=== PATIENT | male | born 1960 | race Caucasian/White ===

== ENCOUNTER 2017-10-03 16:48 | Inpatient (IN) | payer OTHER ==
[~2017-10-03] VITALS: Ht 167.6 cm; Wt 84.0 kg
[2017-10-03 17:02] VITALS: BP 151/84; PULSE 80; RESP 16; TEMP 98.3; O2SAT 96
--- NOTE | 2017-10-03 17:44 | PD ---
HPI Chief Complaint: Fall Time Seen by Provider: 16:58 Travel History International Travel<30 days: No Contact w/Intl Traveler<30days: No History of Present Illness HPI The patient is a 57-year-old male who presents to the emergency department as a transfer from [facility], as a trauma transfer. The patient was on a ladder earlier today when he lost his balance and fell from the ladder, 10 feet , to the ground. The patient landed on a grassy surface, on his heels with she was in place. He complains of low back pain. The patient had a CT of his abdomen and pelvis which revealed an acute fracture superior endplate of L1 that extends into the left lamina with retropulsion the superior endplate associated moderate central spinal stenosis. The patient denies any loss of consciousness during the fall and denies striking his head or neck. He denies any chest pain, shortness of breath, urinary incontinence, or weakness of the upper or lower extremities. The patient denies any chronic medical problems. PFSH Past Medical History Medical History: Denies Significant Hx Tetanus Vaccination: > 5 Years Influenza Vaccination: No Past Surgical History Surgical History: No Previous Surgery Social History Alcohol Use: Yes (wine occu) Tobacco Use: No (quit 30 yrs ago) Substance Use: No Allergies-Medications (Allergen,Severity, Reaction): Coded Allergies: No Known Allergies (Unverified , 10/03/17) Review of Systems Except as stated in HPI: all other systems reviewed are Neg HENT: No: Headaches, Neck Pain Cardiovascular: No: Chest Pain or Discomfort Respiratory: No: Shortness of Breath Gastrointestinal: No: Nausea, Vomiting, Abdominal Pain Musculoskeletal: Positive: Pain Neurologic: No: Dizziness, Focal Abnormalities, Paresthesia, Incontinence, Sensory Disturbance Physical Exam Narrative GENERAL: Awake, alert, pleasant 37-year-old male who appears his stated age and is in no acute respiratory distress. SKIN: Focused skin assessment warm/dry. HEAD: Atraumatic. Normocephalic. EYES: Pupils equal and round. 4 mm bilateral and reactive. EOMs are intact. ENT: No nasal bleeding or discharge. Mucous membranes pink and moist. NECK: Trachea midline. No JVD. No tenderness of the cervical vertebrae. CARDIOVASCULAR: Regular rate and rhythm. No murmur appreciated. RESPIRATORY: No accessory muscle use. Clear to auscultation. Breath sounds equal bilaterally. GASTROINTESTINAL: Abdomen soft, non-tender, nondistended. No rebound tenderness. Back: Tenderness of the mid lumbar region. No obvious deformity. MUSCULOSKELETAL: No obvious deformities. No clubbing. No cyanosis. No edema. Moves all 4 extremity. NEUROLOGICAL: Awake and alert. No obvious cranial nerve deficits. Motor grossly within normal limits. Normal speech. Sensation is intact all 4 extremities. Nonfocal. Oriented 5. PSYCHIATRIC: Appropriate mood and affect; insight and judgment normal. Data Data Last Documented VS Vital Signs Date Time Temp Pulse Resp B/P (MAP) Pulse Ox O2 Delivery O2 Flow Rate FiO2 10/03/17 17:02 98.3 80 16 151/84 (106) [address] Thor Spine W/O Contrast (10/03/17 ) Ct Thorax/ Chest Wo Iv Contras (10/03/17 ) Ct Lumb Spine W/O Contrast (10/03/17 ) Admit Order (Ed Use Only) (10/03/17 17:49) MDM Medical Decision Making Medical Screen Exam Complete: Yes Emergency Medical Condition: Yes Medical Record Reviewed: Yes Interpretation(s) Chest x-ray from [facility] reveals no active pulmonary disease. No focal infiltrate. CT abdomen and pelvis with contrast from [facility] reveals acute compression fracture superior endplate of L1. Fracture extends into the left lamina. Retropulsion of the superior endplate with associated moderate central spinal stenosis. Prostatomegaly with extrinsic pressure in the floor of the bladder. CBC revealed white count 6.5, hemoglobin 14.3, hematocrit 42.4, platelet count 254 PT 13.1, INR 1.0, PTT 23.5 Sodium 139, potassium 4.8, chloride 103, CO2 24, anion gap 12, glucose 142, BUN 17, creatinine 0.72, calcium 9.0, GFR 102.8 Last Impressions Thoracic Spine CT 10/03/17 0000 Signed Impressions: Service Date/Time: Tuesday, October 03, 2017 18:44 - CONCLUSION: 1. No acute fracture is identified within the thoracic spine. Burst fracture L1. See lumbar spine CT report. Usman Campo MD Lumbar Spine CT 10/03/17 0000 Signed Impressions: Service Date/Time: Tuesday, October 03, 2017 18:39 - CONCLUSION: 1. Burst fracture of L1 with retropulsion compromising about 30%% of the AP canal diameter and mild to moderate depression of the superior endplate. No other lumbar spine fractures identified. Usman Campo MD Chest CT 10/03/17 0000 Signed Impressions: Service Date/Time: Tuesday, October 03, 2017 18:44 - CONCLUSION: 1. Negative for acute traumatic injury in the in the thorax. L1 burst fracture. See lumbar spine CT. Usman Campo MD Differential Diagnosis Differential diagnosis includes L1 compression fracture, spinal cord injury, mechanical fall, axial injury. Narrative Course IV was established, and the patient was placed on cardiac telemetry monitoring continuous pulse ox imaging monitoring. I discussed the patient with the on- call trauma surgeon, Dr. Rodriguez, who agrees with admission but request CT of the thorax, therefore, thoracic and lumbar spine CTs were ordered with CT of the thorax. The patient has no pain of the lower extremities over the heels, I doubt calcaneal fractures. The patient will be admitted to the trauma service. Physician Communication Physician Communication The patient will be admitted to the trauma service. Diagnosis Primary Impression: Fracture of lumbar spine Qualified Codes: S32.019A - Unspecified fracture of first lumbar vertebra, initial encounter for closed fracture Admitting Information Admitting Physician Requests: Admit Condition: Stable Kev Jose MD Oct 03, 2017 17:44
--- NOTE | 2017-10-03 19:27 | RADRPT ---
EXAM DATE/TIME: 10/03/2017 18:39 [facility] COMPARISON: No previous studies available for comparison. INDICATIONS : TRauma, patient fell off ladder, injuring back. RADIATION DOSE: 17.53 CTDIvol (mGy) MEDICAL HISTORY : None SURGICAL HISTORY : None. ENCOUNTER: Initial ACUITY: 1 day PAIN SCALE: 6/10 LOCATION: back TECHNIQUE: Volumetric scanning of the lumbar spine was performed. Multiplanar reconstructions in the sagittal, coronal and oblique axial planes were performed. Using automated exposure control and adjustment of the mA and/or kV according to patient size, radiation dose was kept as low as reasonably achievable t o obtain optimal diagnostic quality images. DICOM format image data is available electronically for review and comparison. FINDINGS: There is a burst fracture of L1 vertebral body with mild retropulsion compromising about 30% of the A P canal diameter and mild to moderate depression of the superior endplate. No other lumbar spine frac tures. No spondylolisthesis. CONCLUSION: 1. Burst fracture of L1 with retropulsion compromising about 30% of the AP canal diameter and mild to moderate depression of the superior endplate. No other lumbar spine fractures identified. Usman Campo MD on October 03, 2017 at 19:22 Board Certified Radiologist. This report was verified electronically.
--- NOTE | 2017-10-03 19:29 | RADRPT ---
EXAM DATE/TIME: 10/03/2017 18:44 [facility] COMPARISON: No previous studies available for comparison. INDICATIONS : Trauma, patient fell off ladder, injuring back. RADIATION DOSE: 5.81 CTDIvol (mGy) MEDICAL HISTORY : None SURGICAL HISTORY : None. ENCOUNTER: Initial ACUITY: 1 day PAIN SCALE: 6/10 LOCATION: chest TECHNIQUE: Volumetric scanning of the chest was performed. Using automated exposure control and adjustment of t he mA and/or kV according to patient size, radiation dose was kept as low as reasonably achievable to obtain optimal diagnostic quality images. DICOM format image data is available electronically for r eview and comparison. Follow-up recommendations for detected pulmonary nodules are based at a minimum on nodule size and pa tient risk factors according to Fleischner Society Guidelines. FINDINGS: There is mild dependent atelectasis in the lungs. No pleural or pericardial effusion. No pneumothorax . No acute bony abnormalities identified within the thorax. There is an L1 burst fracture. See lumbar spine CT report. CONCLUSION: 1. Negative for acute traumatic injury in the in the thorax. L1 burst fracture. See lumbar spine CT. Usman Campo MD on October 03, 2017 at 19:25 Board Certified Radiologist. This report was verified electronically.
[2017-10-03] MEDS ORDERED: CHLORHEXIDINE GLUCONATE 2 % 1 PACK (2 CLOTHS) TOP PRN (19:45)
[2017-10-03] MEDS ORDERED: MORPHINE SULFATE 2 MG/ML INJ IV PUSH PRN (19:45)
[2017-10-03] MEDS ORDERED: MAGNESIUM HYDROXIDE SUSP 30 ML CUP PO PRN (19:45)
[2017-10-03] MEDS ORDERED: BISACODYL 10 MG SUPP RECTAL PRN (19:45)
[2017-10-03] MEDS ORDERED: MISCELLANEOUS NURSING INFORMATION XX SCH (19:45)
[2017-10-03] MEDS ORDERED: LACTULOSE SYRUP 20 GM/30 ML CUP PO PRN (19:45)
[2017-10-03] MEDS ORDERED: ONDANSETRON HCL 4 MG/2 ML VIAL IV PUSH PRN (19:45)
[2017-10-03] MEDS ORDERED: SENNOSIDES 8.6 MG TAB PO PRN (19:45)
--- NOTE | 2017-10-03 19:48 | RADRPT ---
EXAM DATE/TIME: 10/03/2017 18:44 [facility] COMPARISON: No previous studies available for comparison. INDICATIONS : TRauma, patient fell off ladder, injuring back. RADIATION DOSE: CTDIvol (mGy) ; Reconstructed from previous dataset, no dose MEDICAL HISTORY : None SURGICAL HISTORY : None. ENCOUNTER: Initial ACUITY: 1 day PAIN SCALE: 6/10 LOCATION: back TECHNIQUE: Volumetric scanning of the thoracic spine was performed. Multiplanar reconstructions in the sagittal , coronal and oblique axial planes were performed. Using automated exposure control and adjustment o f the mA and/or kV according to patient size, radiation dose was kept as low as reasonably achievable to obtain optimal diagnostic quality images. DICOM format image data is available electronically f or review and comparison. FINDINGS: The vertebral bodies of the thoracic spine are in normal alignment without evidence of subluxation. Vertebral body height is maintained. No fractures are seen. T1-T2: Normal. T2-T3: The thecal sac has a normal diameter. No evidence of disc bulge or protrusion. T3-T4: The thecal sac has a normal diameter. No evidence of disc bulge or protrusion. T4-T5: The thecal sac has a normal diameter. No evidence of disc bulge or protrusion. T5-T6: The thecal sac has a normal diameter. No evidence of disc bulge or protrusion. T6-T7: The thecal sac has a normal diameter. No evidence of disc bulge or protrusion. T7-T8: The thecal sac has a normal diameter. No evidence of disc bulge or protrusion. T8-T9: The thecal sac has a normal diameter. No evidence of disc bulge or protrusion. T9-T10: The thecal sac has a normal diameter. No evidence of disc bulge or protrusion. T10-T11: The thecal sac has a normal diameter. No evidence of disc bulge or protrusion. T11-T12: The thecal sac has a normal diameter. No evidence of disc bulge or protrusion. T12-L1: The thecal sac has a normal diameter. No evidence of disc bulge or protrusion. L1 burst fracture. CONCLUSION: 1. No acute fracture is identified within the thoracic spine. Burst fracture L1. See lumbar spine CT report. Usman Campo MD on October 03, 2017 at 19:44 Board Certified Radiologist. This report was verified electronically.
--- NOTE | 2017-10-03 19:57 | HHI.HP ---
History of Present Illness Primary Care Physician No Primary Care Physician Admission Diagnosis trauma transfer, L1 compression fracture Diagnoses: History of Present Illness 57 y.o male fell today 10 feet ,transfer from outside institution-has L1 burst fracture neuro intact,HD normal,moving all 4 extremities. Review of Systems Constitutional: DENIES: Diaphoretic episodes, Fatigue, Fever, Weight gain, Weight loss, Chills, Dizziness, Change in appetite, Night Sweats Endocrine: DENIES: Heat/cold intolerance, Polydipsia, Polyuria, Polyphagia Eyes: DENIES: Blurred vision, Diplopia, Eye inflammation, Eye pain, Vision loss , Photosensitivity, Double Vision Ears, nose, mouth, throat: DENIES: Tinnitus, Hearing loss, Vertigo, Nasal discharge, Oral lesions, Throat pain, Hoarseness, Ear Pain, Running Nose, Epistaxis, Sinus Pain, Toothache, Odynophagia Respiratory: DENIES: Apneas, Cough, Snoring, Wheezing, Hemoptysis, Sputum production, Shortness of breath Cardiovascular: DENIES: Chest pain, Palpitations, Syncope, Dyspnea on Exertion , PND, Lower Extremity Edema, Orthopnea, Claudication Gastrointestinal: DENIES: Abdominal pain, Black stools, Bloody stools, Constipation, Diarrhea, Nausea, Vomiting, Difficulty Swallowing, Anorexia Genitourinary: DENIES: Sexual dysfunction, Urinary frequency, Urinary incontinence, Urgency, Hematuria, Dysuria, Nocturia, Penile Discharge, Testicular Pain, Testicular Swelling Musculoskeletal: DENIES: Joint pain, Muscle aches, Stiffness, Joint Swelling, Back pain, Neck pain Integumentary: DENIES: Abnormal pigmentation, Nail changes, Pruritus, Rash Hematologic/lymphatic: DENIES: Bruising, Lymphadenopathy Immunologic/allergic: DENIES: Eczema, Urticaria Neurologic: DENIES: Abnormal gait, Headache, Localized weakness, Paresthesias, Seizures, Speech Problems, Tremor, Poor Balance Psychiatric: COMPLAINS OF: Anxiety, Confusion, Mood changes, Depression, Hallucinations, Agitation, Suicidal Ideation, Homicidal Ideation, Delusions Past Family Social History Allergies: Coded Allergies: No Known Allergies (Unverified , 10/03/17) Past Medical History HTN Past Surgical History none Reported Medications lisinopril Family History none Social History etoh occ Physical Exam Vital Signs Vital Signs Date Time Temp Pulse Resp B/P (MAP) Pulse Ox O2 Delivery O2 Flow Rate FiO2 10/03/17 17:02 98.3 80 16 151/84 (106) 96 Physical Exam GENERAL: This is a well-nourished, well-developed patient, in no apparent distress. SKIN: No rashes, ecchymoses or lesions. Cool and dry. HEAD: Atraumatic. Normocephalic. No temporal or scalp tenderness. EYES: Pupils equal round and reactive. Extraocular motions intact. ENT: Nose without bleeding, purulent drainage or septal hematoma. . Airway patent. NECK: Trachea midline. No JVD or lymphadenopathy. Supple, nontender CARDIOVASCULAR: Regular rate and rhythm without murmurs, gallops, or rubs. RESPIRATORY: Clear to auscultation. Breath sounds equal bilaterally. No wheezes , rales, or rhonchi. GASTROINTESTINAL: Abdomen soft, non-tender, nondistended.. No guarding. MUSCULOSKELETAL: Extremities without clubbing, cyanosis, or edema. No joint tenderness, effusion, or edema noted. No calf tenderness. back tenderness NEUROLOGICAL: Awake and alert. Cranial nerves II through XII intact. Motor and sensory grossly within normal limits. Five out of 5 muscle strength in all muscle groups. Normal speech. Imaging Last 24 hours Impressions Lumbar Spine CT 10/03/17 0000 Signed Impressions: Service Date/Time: Tuesday, October 03, 2017 18:39 - CONCLUSION: 1. Burst fracture of L1 with retropulsion compromising about 30%% of the AP canal diameter and mild to moderate depression of the superior endplate. No other lumbar spine fractures identified. Usman Campo MD Chest CT 10/03/17 0000 Signed Impressions: Service Date/Time: Tuesday, October 03, 2017 18:44 - CONCLUSION: 1. Negative for acute traumatic injury in the in the thorax. L1 burst fracture. See lumbar spine CT. MD Jam Willoughbyi VTE Risk Assessment Caprini VTE Risk Assessment: Mod/High Risk (score >= 2) VTE Pharm Contraindication: High risk for bleeding Caprini Risk Assessment Model Point Value = 1 Point Value = 2 Point Value = 3 Point Value = 5 Age 41-60 Minor surgery BMI > 25 kg/m2 Swollen legs Varicose veins or History of unexplained or recurrent spontaneous Oral contraceptives or hormone replacement Sepsis (< 1 month) Serious lung disease, including pneumonia (< 1 month) Abnormal pulmonary function Acute myocardial infarction Congestive heart failure (< 1 month) History of inflammatory bowel disease Medical patient at bed rest Age 61-74 Arthroscopic surgery Major open surgery (> 45 min) Laparoscopic surgery (> 45 min) Malignancy Confined to bed (> 72 hours) Immobilizing plaster cast Central venous access Age >= 75 History of VTE Family history of VTE Factor V Leiden Prothrombin [id number] Lupus anticoagulant Anticardiolipin antibodies Elevated serum homocysteine Heparin-induced thrombocytopenia Other congenital or acquired thrombophilia Stroke (< 1 month) Elective arthroplasty Hip, pelvis, or leg fracture Acute spinal cord injury (< 1 month) Prophylaxis Regimen Total Risk Factor Score Risk Level Prophylaxis Regimen 0-1 Low Early ambulation 2 Moderate Order ONE of the following: *Sequential Compression Device (SCD) *Heparin 5000 units SQ BID 3-4 Higher Order ONE of the following medications: *Heparin 5000 units SQ TID *Enoxaparin/Lovenox 40 mg SQ daily (WT < 150 kg, CrCl > 30 mL/min) *Enoxaparin/Lovenox 30 mg SQ daily (WT < 150 kg, CrCl > 10-29 mL/min) *Enoxaparin/Lovenox 30 mg SQ BID (WT < 150 kg, CrCl > 30 mL/min) AND/OR *Sequential Compression Device (SCD) 5 or more Highest Order ONE of the following medications: *Heparin 5000 units SQ TID (Preferred with Epidurals) *Enoxaparin/Lovenox 40 mg SQ daily (WT < 150 kg, CrCl > 30 mL/min) *Enoxaparin/Lovenox 30 mg SQ daily (WT < 150 kg, CrCl > 10-29 mL/min) *Enoxaparin/Lovenox 30 mg SQ BID (WT < 150 kg, CrCl > 30 mL/min) AND *Sequential Compression Device (SCD) Assessment and Plan Assessment and Plan L1 burst fx neuro intact admit to ICU neuro checks NS consult pain control Ramila Stallworth MD Oct 03, 2017 19:57
[2017-10-03 20:00] VITALS: BP 138/70; PULSE 80; RESP 22; TEMP 98.3; O2SAT 96
[2017-10-03] MEDS: ACETAMINOPHEN 1000 MG/100 ML 100 ML IV SCH (20:52)
[2017-10-03] MEDS: METHOCARBAMOL 500 MG TAB PO SCH (20:52)
[2017-10-03] MEDS: DOCUSATE SODIUM 50 MG/SENNA 8.6 MG TAB PO SCH ×2 (20:52→21:00)
[2017-10-03] MEDS: SODIUM CHLOR 0.9% 1000 ML INJ 1,000 ML IV SCH (20:53)
[2017-10-03 21:10] VITALS: PULSE 80
[2017-10-03 22:00] VITALS: PULSE 71
--- NOTE | 2017-10-03 22:38 | PD.CONS ---
History of Present Illness Service Neurosurgery Consult Requested By Trauma service- Reason for Consult L1 fracture Primary Care Physician No Primary Care Physician Diagnoses: History of Present Illness The patient is a 57-year-old male who was transferred from [facility] as a trauma patient after he fell off of a ladder earlier today, he fell approximately 10 feet onto grass with immediate onset of severe low back pain. Initial CT scanning revealed an L1 fracture. He was transferred to [facility] emergency room for further evaluation. The patient has had no sensorimotor symptoms or deficits in the upper or lower extremities. Review of Systems Constitutional: DENIES: Dizziness Eyes: DENIES: Blurred vision Ears, nose, mouth, throat: DENIES: Vertigo Respiratory: DENIES: Hemoptysis, Shortness of breath Cardiovascular: DENIES: Chest pain Gastrointestinal: DENIES: Abdominal pain, Nausea Genitourinary: DENIES: Urinary incontinence Musculoskeletal: COMPLAINS OF: Muscle aches, Stiffness, Back pain, DENIES: Neck pain Hematologic/lymphatic: DENIES: Bruising Neurologic: DENIES: Headache Psychiatric: DENIES: Confusion Past Family Social History Allergies: Coded Allergies: No Known Allergies (Unverified , 10/03/17) Past Medical History No history of cardiac, pulmonary, gastrointestinal disease, diabetes Past Surgical History No previous surgical procedures Reported Medications No prescription medications Social History Drinks alcohol occasionally. Has not smoked cigarettes for approximately 30 years. Physical Exam Vital Signs Vital Signs Date Time Temp Pulse Resp B/P (MAP) Pulse Ox O2 Delivery O2 Flow Rate FiO2 10/03/17 22:00 71 10/03/17 21:10 80 10/03/17 20:00 98.3 80 22 138/70 (92) 96 10/03/17 17:02 98.3 80 16 151/84 (106) 96 Physical Exam GENERAL: This is a well-nourished, well-developed patient, no apparent distress. SKIN: No abrasions, contusion, rash noted. Skin warm and dry. HEAD: Atraumatic. Normocephalic. No temporal or scalp tenderness. EYES: Sclerae are clear and nonicteric ENT: No facial edema or ecchymosis. No periorbital edema. No CSF otorrhea or rhinorrhea. No palpable facial fracture or deformity. NECK: Trachea midline. No cervical spine tenderness. CARDIOVASCULAR: Regular rate and rhythm without murmurs, gallops, or rubs. RESPIRATORY: Clear nonlabored GASTROINTESTINAL: Abdomen soft, non-tender, nondistended. No hepato-splenomegaly , or palpable masses. No guarding. MUSCULOSKELETAL: Extremities without cyanosis, or edema. No joint tenderness, or edema noted. No calf tenderness. Dorsalis pedis pulses 2+ bilateral Positive tenderness at the thoracolumbar midline paraspinous musculature. NEUROLOGICAL: Awake and alert Oriented X 3 Speech is clear Conversant and appropriate Follow simple commands well Answers questions appropriately Reasonable judgment and insight Recent and remote memory are intact No evidence of anxiety or depression Pupils are equal and reactive to accommodation. Extra-ocular movements, visual griffiths to confrontation, facial sensorimotor, tongue, palate, sternocleidomastoid testing, hearing to finger rub testing, and bilateral shoulder shrug are all intact. Sensation is intact to light touch in all extremities Strength normal major flexion and extension groups all extremities Honey's absent bilaterally No ankle clonus Plantar responses absent bilateral Fine motor movements intact upper extremities Imaging 10/03/17 CT scan of the thoracic and lumbar spine images reviewed by the undersigned. The study reveals a superior L1 vertebral burst-type fracture with approximately 30% loss of central height. There is approximately 6 mm retropulsion of the superior L1 vertebral body into the canal with 7 mm residual AP thecal sack dimension. The fracture extends slightly into the L1 lamina, however there is no other obvious posterior column disruption including no separation of the spinous processes or subluxation of the vertebral bodies or facet. No significant kyphosis. Thoracic Spine CT 10/03/17 0000 Signed Impressions: Service Date/Time: Tuesday, October 03, 2017 18:44 - CONCLUSION: 1. No acute fracture is identified within the thoracic spine. Burst fracture L1. See lumbar spine CT report. Usman Campo MD Lumbar Spine CT 10/03/17 0000 Signed Impressions: Service Date/Time: Tuesday, October 03, 2017 18:39 - CONCLUSION: 1. Burst fracture of L1 with retropulsion compromising about 30%% of the AP canal diameter and mild to moderate depression of the superior endplate. No other lumbar spine fractures identified. Usman Campo MD Chest CT 10/03/17 0000 Signed Impressions: Service Date/Time: Tuesday, October 03, 2017 18:44 - CONCLUSION: 1. Negative for acute traumatic injury in the in the thorax. L1 burst fracture. See lumbar spine CT. Usman Campo MD Assessment and Plan Assessment and Plan Impression: 1. Superior L1 burst fracture with approximately 30% loss of vertebral body height, just less than 50% canal compromise, minimal posterior column involvement with laminar fracture but no evidence of ligamentous injury or subluxation, and no focal neurologic deficit on examination. TLICS score = 2. Recommendations: Findings were discussed with the patient. Recommend initial conservative treatment. Mobilize out of bed with TLSO brace and monitor pain level and neurologic function as well as follow-up radiologic imaging to assess for any progression of the fracture severity. Pain medications as needed to control acute pain. Physical therapy Risk of progressive fracture or neurologic injury with conservative treatment fully discussed. I have answered all his questions. He appears to understand and agree with the above plan. Edgardo Lux MD Oct 03, 2017 22:38
[2017-10-04] VITALS (12 sets, daily range): BP systolic 122–144; BP diastolic 65–88; PULSE 64–78; RESP 14–20; TEMP 98–98.7; O2SAT 95–97
[2017-10-04] MEDS: MORPHINE SULFATE 4 MG/ML INJ IV PUSH PRN ×3 (00:07→07:47)
[2017-10-04] MEDS: ACETAMINOPHEN 1000 MG/100 ML 100 ML IV SCH ×3 (02:36→15:43)
[2017-10-04] MEDS ORDERED: CHLORHEXIDINE GLUCONATE 2 % 1 PACK (2 CLOTHS) TOP SCH (04:00)
[2017-10-04 05:33] LABS: AUTOMATED NEUTROPHIL # 4.7 TH/MM3 (1.8-7.7); BASOPHIL % 0.3 % (0.0-2.0); EOSINOPHIL % 0.6 % (0.0-4.0); HEMATOCRIT 38.2 % (39.0-51.0); HEMO FLAGS DIFF FINAL; LYMPH % 19.5 % (9.0-44.0); LYMPHOCYTE # 1.3 TH/MM3 (1.0-4.8); MEAN CELL VOLUME 96.6 FL (80.0-100.0); MEAN CORPUSCULAR HEMOGLOBIN 32.9 PG (27.0-34.0); MEAN CORPUSCULAR HGB CONC 34.1 % (32.0-36.0); MONO % 9.5 % (0.0-8.0); NEUT % 70.1 % (16.0-70.0); PLATELET COUNT 205 TH/MM3 (150-450); RED BLOOD COUNT 3.95 MIL/MM3 (4.50-5.90); RED CELL DISTRIBUTION WIDTH 13.3 % (11.6-17.2); WHITE BLOOD COUNT 6.7 TH/MM3 (4.0-11.0)
[2017-10-04 05:54] LABS: BICARBONATE 26.3 MEQ/L (21.0-32.0); POTASSIUM 3.7 MEQ/L (3.5-5.1)
[2017-10-04] MEDS: METHOCARBAMOL 500 MG TAB PO SCH ×3 (05:58→20:59)
[2017-10-04] MEDS: SODIUM CHLOR 0.9% 1000 ML INJ 1,000 ML IV SCH ×2 (06:45→17:00)
[2017-10-04] MEDS: DOCUSATE SODIUM 50 MG/SENNA 8.6 MG TAB PO SCH ×2 (09:40→20:59)
--- NOTE | 2017-10-04 12:36 | HHI.NSPN ---
(Ariel Todd) History Chief Complaint: Back pain (Ariel Todd) Interval History 10/03: The patient is a 57-year-old male who was transferred from [facility] as a trauma patient after he fell off of a ladder earlier today, he fell approximately 10 feet onto grass with immediate onset of severe low back pain. Initial CT scanning revealed an L1 fracture. He was transferred to [facility] emergency room for further evaluation. The patient has had no sensorimotor symptoms or deficits in the upper or lower extremities. 10/04: The patient states that he does have low back pain but otherwise is doing good. He denies any pain, numbness, tingling or weakness to the lower extremities. He does say he hasn't been out of bed yet. There is a TLSO brace in the room. (Ariel Todd) System Review Comments MUSCULOSKELETAL: Low back pain. (Ariel Todd) Exam Results 10/02/17 10/02/17 10/03/17 10/03/17 10/04/17 10/04/17 06:00 18:00 06:00 18:00 06:00 18:00 Intake Total 1027 ml Output Total 900 ml Balance 127 ml Intake IV Total 1027 ml Output Urine Total 900 ml Vital Signs Date Time Temp Pulse Resp B/P (MAP) Pulse Ox O2 Delivery O2 Flow Rate FiO2 10/04/17 10:00 65 10/04/17 08:00 98.1 77 20 144/88 (106) 96 10/04/17 08:00 67 10/04/17 07:00 97 10/04/17 06:00 65 10/04/17 04:00 98.7 64 15 122/65 (84) 95 10/04/17 04:00 64 10/04/17 02:00 66 10/04/17 00:00 98.0 77 14 125/67 (86) 96 10/04/17 00:00 70 10/03/17 22:00 71 10/03/17 21:10 80 10/03/17 20:00 98.3 80 22 138/70 (92) 96 10/03/17 17:02 98.3 80 16 151/84 (106) 96 (Ariel Todd) Physical Examination GENERAL: Awake & alert in bed visiting with a friend, affect appears normal, in no apparent distress. MUSCULOSKELETAL: PATRICK w/o difficulty, no evident clubbing or deformity. TTP of thoracolumbar spine at T12-L2 region. NEUROLOGICAL: AAOx3. Speech clear & appropriate. Follows simple commands w/o difficulty. Sensation intact to the light touch to the lower extremities. Motor strength is 5/5 to all major flexion & extension muscle groups of the lower extremities. (Ariel Todd) Lab, Micro, Other Results Recent Impressions Thoracic Spine CT 10/03/17 0000 Signed Impressions: Service Date/Time: Tuesday, October 03, 2017 18:44 - CONCLUSION: 1. No acute fracture is identified within the thoracic spine. Burst fracture L1. See lumbar spine CT report. Usman Campo MD Lumbar Spine CT 10/03/17 0000 Signed Impressions: Service Date/Time: Tuesday, October 03, 2017 18:39 - CONCLUSION: 1. Burst fracture of L1 with retropulsion compromising about 30%% of the AP canal diameter and mild to moderate depression of the superior endplate. No other lumbar spine fractures identified. Usman Campo MD Chest CT 10/03/17 0000 Signed Impressions: Service Date/Time: Tuesday, October 03, 2017 18:44 - CONCLUSION: 1. Negative for acute traumatic injury in the in the thorax. L1 burst fracture. See lumbar spine CT. Usman Campo MD Laboratory Tests Test 10/03/17 20:48 10/04/17 04:44 Nasal Screen MRSA (PCR) MRSA NOT DETECTED White Blood Count 6.7 TH/MM3 Red Blood Count 3.95 MIL/MM3 Hemoglobin 13.0 GM/DL Hematocrit 38.2 % Mean Corpuscular Volume 96.6 FL Mean Corpuscular Hemoglobin 32.9 PG Mean Corpuscular Hemoglobin Concent 34.1 % Red Cell Distribution Width 13.3 % Platelet Count 205 TH/MM3 Mean Platelet Volume 9.1 FL Neutrophils (%) (Auto) 70.1 % Lymphocytes (%) (Auto) 19.5 % Monocytes (%) (Auto) 9.5 % Eosinophils (%) (Auto) 0.6 % Basophils (%) (Auto) 0.3 % Neutrophils # (Auto) 4.7 TH/MM3 Lymphocytes # (Auto) 1.3 TH/MM3 Monocytes # (Auto) 0.6 TH/MM3 Eosinophils # (Auto) 0.0 TH/MM3 Basophils # (Auto) 0.0 TH/MM3 CBC Comment DIFF FINAL Differential Comment Blood Urea Nitrogen 12 MG/DL Creatinine 0.67 MG/DL Random Glucose 111 MG/DL Calcium Level 8.1 MG/DL Sodium Level 139 MEQ/L Potassium Level 3.7 MEQ/L Chloride Level 106 MEQ/L Carbon Dioxide Level 26.3 MEQ/L Anion Gap 7 MEQ/L Estimat Glomerular Filtration Rate 122 ML/MIN (Ariel Todd) Medical Decision Making Impression and Plan Impression: 1. Superior L1 burst fracture with approximately 30% loss of vertebral body height, just less than 50% canal compromise, minimal posterior column involvement with laminar fracture but no evidence of ligamentous injury or subluxation, and no focal neurologic deficit on examination. TLICS score = 2. Patient doing well in bed, pain controlled, neurologically intact. Plan: Primary management per Trauma & Computer Clerk. Neuro checks. TLSO brace when OOB. Mobilise patient w/assistance. Will obtain follow up imaging to assess for any progression of the fracture severity once mobilising. Pain medications as needed to control acute pain. PT eval & tx. (Ariel Todd) Attending Statement The exam, history, and the medical decision-making described in the above note were completed with the assistance of the mid-level provider. I reviewed and agree with the findings presented. I attest that I had a [id number] encounter with the patient on the same day, and personally performed and documented my assessment and findings in the medical record. The patient remains awake and alert on my examination today. He walked for a few feet with physical therapy today and sat up in a chair for a brief period of time. He states that he still has rather severe thoracolumbar pain and he is out of bed. However he has no complaint of weakness or numbness or pain in the lower extremities. No complain of bowel or bladder dysfunction. 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 I advised the patient that we will try to check a standing thoracolumbar spine x -ray later this week when he is able to tolerate standing for the x-ray. Continuing therapy with TLSO brace. Okay for Ayla. (Edgardo Lux MD) Ariel Todd Oct 04, 2017 12:36 Edgardo Lux MD Oct 04, 2017 19:54
--- NOTE | 2017-10-04 17:11 | HHI.CCPN ---
Subjective Brief History Patient fell off a ladder has L1 burst fracture scope be managed nonoperatively according to neurosurgery Patient will be placed in TLSO brace and transferred to the floor Neurologically he is fully intact and moves all 4 extremities Awake alert and oriented Bilateral good breath sounds Hemodynamically stable Abdomen slightly distended with active bowel sounds Extremities and normal with good proximal distal pulses neurovascular deficit Hematologically packed with stable hemoglobin Transferred to floor and discharge patient once ambulatory 24 Hour Review/Hospital Course 10/04/17 Patient fell off a ladder has L1 burst fracture scope be managed nonoperatively according to neurosurgery Patient will be placed in TLSO brace and transferred to the floor Neurologically he is fully intact and moves all 4 extremities Awake alert and oriented Bilateral good breath sounds Hemodynamically stable Abdomen slightly distended with active bowel sounds Extremities and normal with good proximal distal pulses neurovascular deficit Hematologically packed with stable hemoglobin Transferred to floor and discharge patient once ambulatory Objective Vital Signs Date Time Temp Pulse Resp B/P (MAP) Pulse Ox O2 Delivery O2 Flow Rate FiO2 10/04/17 15:00 98.2 78 18 134/82 (99) 97 Intake and Output 10/04/17 10/04/17 10/05/17 08:00 16:00 00:00 Intake Total 1027 ml 480 ml Output Total 900 ml 950 ml Balance 127 ml -470 ml Result Diagram: 10/04/17 0444 10/04/17 0444 Exam MEDICAL RECORD SPECIALIST Patient will be placed in TLSO brace and transferred to the floor Neurologically he is fully intact and moves all 4 extremities Awake alert and oriented Hemodynamic/Cardiac Bilateral good breath sounds Hemodynamically stable Pulmonary/Respiratory Abdomen slightly distended with active bowel sounds Extremities and normal with good proximal distal pulses neurovascular deficit Hematologically packed with stable hemoglobin Transferred to floor and discharge patient once ambulatory Assessment and Plan Attestation Critical care 35 minutes Anthony Arevalo MD Oct 04, 2017 17:11
--- NOTE | 2017-10-04 17:19 | PD.CONS ---
HPI Service Rehabilitation Medicine Consult Requested By [facility] trauma service Reason for Consult Comprehensive rehabilitation evaluation. Primary Care Physician No Primary Care Physician History of Present Illness Fadi Roberts is a 57-year-old male admitted [facility] 10/03/17 after fall from ladder. Lumbar spine CT showed burst fracture of L1 with retropulsion compromising about 30% of the AP canal diameter and mild to moderate depression of the superior endplate. This was treated nonsurgically with TLSO Review of Systems Eyes: DENIES: Diplopia Respiratory: DENIES: Shortness of breath Cardiovascular: DENIES: Chest pain Gastrointestinal: DENIES: Abdominal pain Genitourinary: DENIES: Urinary incontinence Musculoskeletal: COMPLAINS OF: Back pain Integumentary: DENIES: Rash Hematologic/lymphatic: DENIES: Bruising Neurologic: DENIES: Headache, Localized weakness, Paresthesias Psychiatric: DENIES: Confusion Past Family Social History Allergies: Coded Allergies: No Known Allergies (Unverified , 10/03/17) Past Medical History Hypertension Past Surgical History None Current Medications Current Medications Medications (Trade) Dose Ordered Sig/Micheal Route Start Time Stop Time Status Last Admin Sodium Chloride 1,000 ml @ 100 mls/hr Q10H IV 10/03/17 19:32 10/04/17 17:00 (Zofran Inj) 4 mg Q6H PRN IV PUSH 10/03/17 19:45 10/03/17 21:25 Miscellaneous Information 1 [id number] XX 10/03/17 19:45 (Chlorhexidine 2% Cloth) 3 pack Taper DAILY@04 TOP 10/04/17 04:00 09/30/18 03:59 (Chlorhexidine 2% Cloth) 3 pack UNSCH PRN TOP 10/03/17 19:45 (Milk Of Magnesia Liq) 30 ml Q12H PRN PO 10/03/17 19:45 (Senokot) 17.2 mg Q12H PRN PO 10/03/17 19:45 (Dulcolax Supp) 10 mg DAILY PRN RECTAL 10/03/17 19:45 (Lactulose Liq) 30 ml DAILY PRN PO 10/03/17 19:45 (Morphine Inj) 4 mg Q3H PRN IV PUSH 10/03/17 19:45 10/04/17 07:47 Acetaminophen 100 ml @ 400 mls/hr Q6H IV 10/03/17 21:00 12/13/17 20:59 10/04/17 15:43 (Robaxin) 500 mg Q8HR PO 10/03/17 22:00 10/04/17 13:32 (Johana-Colace) 2 tab BID PO 10/04/17 09:00 10/04/17 09:40 (Roxicodone) 5 mg Q4H PRN PO 10/04/17 06:30 (Roxicodone) 10 mg Q4H PRN PO 10/04/17 06:30 10/04/17 14:29 Family History Mother: . Sroke Social History Prior to admission patient lived in [place], [place]. He was independent with all mobility and ADLs. No tobacco history. Occasional alcohol use. Exam I&O / VS 10/04/17 10/04/17 10/05/17 15:00 23:00 07:00 Intake Total 480 ml Output Total 950 ml Balance -470 ml Intake Oral 480 ml Output Urine Total 950 ml Vital Signs Date Time Temp Pulse Resp B/P (MAP) Pulse Ox O2 Delivery O2 Flow Rate FiO2 10/04/17 15:00 98.2 78 18 134/82 (99) 97 10/04/17 13:00 70 10/04/17 10:00 65 10/04/17 08:00 98.1 77 20 144/88 (106) 96 10/04/17 08:00 67 10/04/17 07:00 97 10/04/17 06:00 65 10/04/17 04:00 98.7 64 15 122/65 (84) 95 10/04/17 04:00 64 10/04/17 02:00 66 10/04/17 00:00 98.0 77 14 125/67 (86) 96 10/04/17 00:00 70 10/03/17 22:00 71 10/03/17 21:10 80 10/03/17 20:00 98.3 80 22 138/70 (92) 96 General: No acute distress Respiratory: Lungs CTA, Non-labored respirations, BS equal Gastrointestinal: Positive Bowel Sounds, Non-Distended, Non-Tender Cardiovascular: Normal rate, Regular Rhythm Skin: Other (No rash noted) Musculoskeletal: Swelling (No distal lower extremity edema) Psychiatric: Cooperative, Appropriate mood & affect Orientation: oriented to Self, oriented to Place, oriented to Time, oriented to Situation Neurologic: Cranial Nerves (Intact 2 through 12), Facial Symmetry (Symmetric), Speech (Clear) Motor: Right Upper Extremity (5/5), Left Upper Extremity (5/5), Right Lower Extremity (Testing limited by pain but appears to be grossly 5/5), Left Lower Extremity (Testing limited by pain but appears to be grossly 5/5) Sensory Intact to light touch in both upper and lower extremities DTRs: Normal Clonus: Negative Assessment and Plan Diagnosis: (1) Burst fracture of lumbar vertebra ICD Codes: S32.001A - Stable burst fracture of unspecified lumbar vertebra, initial encounter for closed fracture Qualifiers: Encounter type: initial encounter Fracture type: closed Qualified Codes: S32.001A - Stable burst fracture of unspecified lumbar vertebra, initial encounter for closed fracture Assessment 1. Fall 10/03/17 with L1 burst fracture 2. Hypertension Plan 1. Physical therapy to begin to mobilize in TLSO 2. Occupational therapy addressing ADLs and patient is now maximal assistance for upper and lower body dressing 3. SCDs in place for DVT prophylaxis 4. Anticipate patient may need a short inpatient rehabilitation at discharge versus home health. Will follow in conjunction with case management 5. Will follow while hospitalized and at discharge Thank you for this consult Jeanette Varela MD Oct 04, 2017 17:19
[2017-10-05] MEDS: SODIUM CHLOR 0.9% 1000 ML INJ 1,000 ML IV SCH (03:22)
[2017-10-05 04:00] VITALS: BP 129/65; PULSE 70; RESP 18; TEMP 99.4; O2SAT 94
[2017-10-05 05:06] LABS: AUTOMATED NEUTROPHIL # 4.6 TH/MM3 (1.8-7.7); BASOPHIL % 0.5 % (0.0-2.0); EOSINOPHIL # 0.1 TH/MM3 (0-0.4); EOSINOPHIL % 1.1 % (0.0-4.0); HEMATOCRIT 38.8 % (39.0-51.0); HEMO FLAGS DIFF FINAL; LYMPH % 21.9 % (9.0-44.0); LYMPHOCYTE # 1.5 TH/MM3 (1.0-4.8); MEAN CELL VOLUME 97.5 FL (80.0-100.0); MEAN CORPUSCULAR HEMOGLOBIN 33.3 PG (27.0-34.0); MEAN CORPUSCULAR HGB CONC 34.1 % (32.0-36.0); MONO % 8.4 % (0.0-8.0); NEUT % 68.1 % (16.0-70.0); PLATELET COUNT 209 TH/MM3 (150-450); RED BLOOD COUNT 3.98 MIL/MM3 (4.50-5.90); RED CELL DISTRIBUTION WIDTH 13.3 % (11.6-17.2); WHITE BLOOD COUNT 6.8 TH/MM3 (4.0-11.0)
[2017-10-05 05:26] LABS: BICARBONATE 25.9 MEQ/L (21.0-32.0); POTASSIUM 3.8 MEQ/L (3.5-5.1)
[2017-10-05] MEDS: METHOCARBAMOL 500 MG TAB PO SCH ×3 (06:09→23:14)
[2017-10-05] MEDS ORDERED: fentaNYL 50 MCG/HR PATCH T-DERMAL SCH (08:00)
[2017-10-05 08:08] VITALS: BP 147/87; PULSE 72; RESP 20; TEMP 98.2; O2SAT 95
[2017-10-05] MEDS: ENOXAPARIN SODIUM 40 MG/0.4 ML SYRINGE SQ SCH (08:38)
[2017-10-05] MEDS: DOCUSATE SODIUM 50 MG/SENNA 8.6 MG TAB PO SCH ×2 (08:39→20:21)
--- NOTE | 2017-10-05 10:38 | HHI.NSPN ---
(Ariel Todd) History Chief Complaint: Back pain much beter today. (Ariel Todd) Interval History 10/03: The patient is a 57-year-old male who was transferred from [facility] as a trauma patient after he fell off of a ladder earlier today, he fell approximately 10 feet onto grass with immediate onset of severe low back pain. Initial CT scanning revealed an L1 fracture. He was transferred to [facility] emergency room for further evaluation. The patient has had no sensorimotor symptoms or deficits in the upper or lower extremities. 10/04: The patient states that he does have low back pain but otherwise is doing good. He denies any pain, numbness, tingling or weakness to the lower extremities. He does say he hasn't been out of bed yet. There is a TLSO brace in the room. 10/05: This morning the patient is awake and alert. Therapy is in the room and had just walked the patient to the Nurses' station. The patient states that he is doing good and his back pain is much better. He denies any pain, numbness or tingling to the lower extremities. He is in the TLSO brace in bed because he says it helps with the pain and in being able to move. The patient was transferred to a regular med/surg floor yesterday from [facility]. (Ariel Todd) System Review Comments MUSCULOSKELETAL: Some back pain but it is much better. (Ariel Todd) Exam Results 10/03/17 10/03/17 10/04/17 10/04/17 10/05/17 10/05/17 06:00 18:00 06:00 18:00 06:00 18:00 Intake Total 3298 ml 240 ml Output Total 2700 ml 1400 ml 800 ml Balance 598 ml -1400 ml -560 ml Intake Oral 700 ml 240 ml IV Total 2598 ml Output Urine Total 2700 ml 1400 ml 800 ml Vital Signs Date Time Temp Pulse Resp B/P (MAP) Pulse Ox O2 Delivery O2 Flow Rate FiO2 10/05/17 09:46 18 10/05/17 08:40 18 10/05/17 08:08 98.2 72 20 147/87 (107) 95 10/05/17 04:00 99.4 70 18 129/65 (86) 94 10/04/17 22:55 98.7 73 139/83 (101) 96 10/04/17 21:00 73 10/04/17 20:00 98.3 68 18 140/79 (99) 96 10/04/17 19:00 71 10/04/17 15:00 98.2 78 18 134/82 (99) 97 10/04/17 13:00 70 10/04/17 10:00 65 10/04/17 08:00 98.1 77 20 144/88 (106) 96 10/04/17 08:00 67 10/04/17 07:00 97 10/04/17 06:00 65 10/04/17 04:00 98.7 64 15 122/65 (84) 95 10/04/17 04:00 64 10/04/17 02:00 66 10/04/17 00:00 98.0 77 14 125/67 (86) 96 10/04/17 00:00 70 10/03/17 22:00 71 10/03/17 21:10 80 10/03/17 20:00 98.3 80 22 138/70 (92) 96 10/03/17 17:02 98.3 80 16 151/84 (106) 96 (Ariel Todd) Physical Examination GENERAL: Awake & alert in bed, affect is normal, no apparent distress. MUSCULOSKELETAL: PATRICK w/o difficulty, no evident clubbing or deformity. In TLSO brace. No back pain with straight leg raise bilaterally. NEUROLOGICAL: AAOx3. Speech clear & appropriate. Follows simple commands w/o difficulty. Sensation intact to the light touch to the lower extremities. Motor strength is 5/5 to all major flexion & extension muscle groups of the lower extremities. (Ariel Todd) Lab, Micro, Other Results Recent Impressions Thoracic Spine CT 10/03/17 0000 Signed Impressions: Service Date/Time: Tuesday, October 03, 2017 18:44 - CONCLUSION: 1. No acute fracture is identified within the thoracic spine. Burst fracture L1. See lumbar spine CT report. Usman Campo MD Lumbar Spine CT 10/03/17 0000 Signed Impressions: Service Date/Time: Tuesday, October 03, 2017 18:39 - CONCLUSION: 1. Burst fracture of L1 with retropulsion compromising about 30%% of the AP canal diameter and mild to moderate depression of the superior endplate. No other lumbar spine fractures identified. Usman Campo MD Chest CT 10/03/17 0000 Signed Impressions: Service Date/Time: Tuesday, October 03, 2017 18:44 - CONCLUSION: 1. Negative for acute traumatic injury in the in the thorax. L1 burst fracture. See lumbar spine CT. Usman Campo MD Laboratory Tests Test 10/03/17 20:48 10/04/17 04:44 10/05/17 04:47 Nasal Screen MRSA (PCR) MRSA NOT DETECTED White Blood Count 6.7 TH/MM3 6.8 TH/MM3 Red Blood Count 3.95 MIL/MM3 3.98 MIL/MM3 Hemoglobin 13.0 GM/DL 13.2 GM/DL Hematocrit 38.2 % 38.8 % Mean Corpuscular Volume 96.6 FL 97.5 FL Mean Corpuscular Hemoglobin 32.9 PG 33.3 PG Mean Corpuscular Hemoglobin Concent 34.1 % 34.1 % Red Cell Distribution Width 13.3 % 13.3 % Platelet Count 205 TH/MM3 209 TH/MM3 Mean Platelet Volume 9.1 FL 8.8 FL Neutrophils (%) (Auto) 70.1 % 68.1 % Lymphocytes (%) (Auto) 19.5 % 21.9 % Monocytes (%) (Auto) 9.5 % 8.4 % Eosinophils (%) (Auto) 0.6 % 1.1 % Basophils (%) (Auto) 0.3 % 0.5 % Neutrophils # (Auto) 4.7 TH/MM3 4.6 TH/MM3 Lymphocytes # (Auto) 1.3 TH/MM3 1.5 TH/MM3 Monocytes # (Auto) 0.6 TH/MM3 0.6 TH/MM3 Eosinophils # (Auto) 0.0 TH/MM3 0.1 TH/MM3 Basophils # (Auto) 0.0 TH/MM3 0.0 TH/MM3 CBC Comment DIFF FINAL DIFF FINAL Differential Comment Blood Urea Nitrogen 12 MG/DL 11 MG/DL Creatinine 0.67 MG/DL 0.76 MG/DL Random Glucose 111 MG/DL 112 MG/DL Calcium Level 8.1 MG/DL 8.0 MG/DL Sodium Level 139 MEQ/L 140 MEQ/L Potassium Level 3.7 MEQ/L 3.8 MEQ/L Chloride Level 106 MEQ/L 108 MEQ/L Carbon Dioxide Level 26.3 MEQ/L 25.9 MEQ/L Anion Gap 7 MEQ/L 6 MEQ/L Estimat Glomerular Filtration Rate 122 ML/MIN 105 ML/MIN (Ariel Todd) Medical Decision Making Impression and Plan Impression: 1. Superior L1 burst fracture with approximately 30% loss of vertebral body height, just less than 50% canal compromise, minimal posterior column involvement with laminar fracture but no evidence of ligamentous injury or subluxation, and no focal neurologic deficit on examination. TLICS score = 2. Patient continues to do well, pain is better controlled, neurologically intact. Plan: Primary management per Trauma. Neuro checks. TLSO brace when OOB. Mobilise patient w/assistance. Pain medications as needed to control acute pain. PT eval & tx. XR lumbar spine AP/lateral standing today. (Ariel Todd) Attending Statement The exam, history, and the medical decision-making described in the above note were completed with the assistance of the mid-level provider. I reviewed and agree with the findings presented. I attest that I had a [id number] encounter with the patient on the same day, and personally performed and documented my assessment and findings in the medical record. 10/05/17 lateral lumbar spine x-ray reveals relatively stable approximately 25- 30% L1 superior compression fracture without significant kyphosis. The patient was able to ambulate with therapy for a short distance today and was able to stand for 2-3 minutes for his x-ray. He complains of persistent rather severe thoracolumbar pain, but seems to be improving a little bit every day. On examination today his sensory motor function remains intact in the lower extremities Plan to continue conservative treatment Discussed with patient Continue therapy with brace Stable for discharge from neurosurgical standpoint (Edgardo Lux MD) Ariel Todd Oct 05, 2017 10:38 Edgardo Lux MD Oct 05, 2017 16:48
[2017-10-05 12:39] VITALS: BP 162/90; PULSE 77; RESP 20; TEMP 97.9; O2SAT 97
--- NOTE | 2017-10-05 14:02 | RADRPT ---
EXAM DATE/TIME: 10/05/2017 12:37 [facility] COMPARISON: No previous studies available for comparison. INDICATIONS : Low back pain, fell Standing with brace on MEDICAL HISTORY : None. SURGICAL HISTORY : None. ENCOUNTER: Initial ACUITY: 2 days PAIN SCORE: 10/10 LOCATION: Lumbar spine FINDINGS: Two view examination was performed. There are five non-rib bearing vertebral bodies. Significant lo ss of height is identified in the first lumbar vertebral body characteristic of a moderate compressio n fracture. There is superior endplate depression with cortical destruction along the anterior margin of the vertebral body. The lumbar vertebral bodies are otherwise intact. Mild/moderate degenerative disc disease is noted at L5-S1. There is mild facet arthropathy CONCLUSION: 1. Moderate compression fracture of L1 with superior endplate compression. 2. Lower lumbar degenerative disc disease and facet arthropathy. Ranjeet Juan MD on October 05, 2017 at 13:58 Board Certified Radiologist. This report was verified electronically.
--- NOTE | 2017-10-05 14:51 | HHI.PR ---
Subjective Subjective Notes Increased pain with ambulation today, added fentanyl patch Eating well Objective Vitals/I&O Vital Signs Date Time Temp Pulse Resp B/P (MAP) Pulse Ox O2 Delivery O2 Flow Rate FiO2 10/05/17 14:35 18 10/05/17 12:39 97.9 77 162/90 (114) 97 Labs Laboratory Tests Test 10/05/17 04:47 White Blood Count 6.8 Red Blood Count 3.98 Hemoglobin 13.2 Hematocrit 38.8 Mean Corpuscular Volume 97.5 Mean Corpuscular Hemoglobin 33.3 Mean Corpuscular Hemoglobin Concent 34.1 Red Cell Distribution Width 13.3 Platelet Count 209 Mean Platelet Volume 8.8 Neutrophils (%) (Auto) 68.1 Lymphocytes (%) (Auto) 21.9 Monocytes (%) (Auto) 8.4 Eosinophils (%) (Auto) 1.1 Basophils (%) (Auto) 0.5 Neutrophils # (Auto) 4.6 Lymphocytes # (Auto) 1.5 Monocytes # (Auto) 0.6 Eosinophils # (Auto) 0.1 Basophils # (Auto) 0.0 CBC Comment DIFF FINAL Differential Comment Blood Urea Nitrogen 11 Creatinine 0.76 Random Glucose 112 Calcium Level 8.0 Sodium Level 140 Potassium Level 3.8 Chloride Level 108 Carbon Dioxide Level 25.9 Anion Gap 6 Estimat Glomerular Filtration Rate 105 Radiology Last Impressions Lumbar Spine X-Ray 10/05/17 0000 Signed Impressions: Service Date/Time: September 12:37 - CONCLUSION: 1. Moderate compression fracture of L1 with superior endplate compression. 2. Lower lumbar degenerative disc disease and facet arthropathy. Ranjeet Juan MD Thoracic Spine CT 10/03/17 0000 Signed Impressions: Service Date/Time: Tuesday, October 03, 2017 18:44 - CONCLUSION: 1. No acute fracture is identified within the thoracic spine. Burst fracture L1. See lumbar spine CT report. Usman Campo MD Lumbar Spine CT 10/03/17 0000 Signed Impressions: Service Date/Time: Tuesday, October 03, 2017 18:39 - CONCLUSION: 1. Burst fracture of L1 with retropulsion compromising about 30%% of the AP canal diameter and mild to moderate depression of the superior endplate. No other lumbar spine fractures identified. Usman Campo MD Chest CT 10/03/17 0000 Signed Impressions: Service Date/Time: Tuesday, October 03, 2017 18:44 - CONCLUSION: 1. Negative for acute traumatic injury in the in the thorax. L1 burst fracture. See lumbar spine CT. Usman Campo MD Narrative Exam GENERAL: 57-year-old well-nourished, well developed male lying in bed with TLSO brace on. SKIN: Warm and dry. HEAD: Atraumatic. Normocephalic. EYES: PERRL. ENT: No nasal bleeding or discharge. Mucous membranes pink and moist. NECK: Trachea midline. No JVD. CARDIOVASCULAR: Regular rate and rhythm. RESPIRATORY: No accessory muscle use. Lungs clear to auscultation. Breath sounds equal bilaterally. GASTROINTESTINAL: Abdomen soft, non-tender, nondistended. + BS. MUSCULOSKELETAL: Extremities without cyanosis, or edema. MAEW, + perfused NEUROLOGICAL: Awake and alert. Normal speech. A/P Assessment and Plan [place]: Fell off a ladder at 10ft landing in the grass on his bilateral heels. No LOC. Trauma transfer from [place]. INJURIES: L1 burst fx PMHx: Back pain Diet: Regular Pulm: IS Pain: Oxycodone, Morphine IV, Robaxin, added Fentanyl patch 50mcg Activity: OOB. PT and OT ordered Bowel: Johana-colace 2 tabs, PRN Lactulose. LBM 0 DVT: SCDs, Lovenox 40 QD L1 burst fx Neurosurgery consulted Nonoperative management TLSO brace Pain control OOB-PT and OT ordered Rehabilitation placement Lovenox Plan of care discussed with patient at bedside. Case management consulted to assist with discharge planning. [facility] evaluating for possible placement. Plan to discharge in 1-2 days once pain better controlled on oral medications. Kari Hale Oct 05, 2017 14:51
[2017-10-05 17:01] VITALS: BP 159/97; PULSE 81; RESP 18; TEMP 98.9; O2SAT 97
[2017-10-05 21:05] VITALS: BP 138/80; PULSE 76; RESP 18; TEMP 99.5; O2SAT 95
[2017-10-06] VITALS: BP 113/68; PULSE 83; RESP 16; TEMP 98.7; O2SAT 96
[2017-10-06 04:52] VITALS: BP 125/69; PULSE 71; RESP 16; TEMP 98.8; O2SAT 94
[2017-10-06] MEDS: METHOCARBAMOL 500 MG TAB PO SCH (05:45)
[2017-10-06 08:41] VITALS: BP 132/73; PULSE 79; RESP 18; TEMP 98.7; O2SAT 95
[2017-10-06] MEDS: DOCUSATE SODIUM 50 MG/SENNA 8.6 MG TAB PO SCH (09:24)
[2017-10-06] MEDS: ENOXAPARIN SODIUM 40 MG/0.4 ML SYRINGE SQ SCH (09:26)
[2017-10-06] MEDS ORDERED: SENN187 PO (12:06)
[2017-10-06] MEDS ORDERED: FENT50T T-DERMAL (12:06)
[2017-10-06] MEDS ORDERED: PERC10TA27 PO (12:06)
[2017-10-06] MEDS ORDERED: PERC5TAB12 PO (12:06)
[2017-10-06 12:22] VITALS: BP 134/76; PULSE 76; RESP 18; TEMP 98.2; O2SAT 96
--- NOTE | 2017-10-06 12:52 | HHI.NSPN ---
History Chief Complaint: Back pain much beter today. Interval History 10/03: The patient is a 57-year-old male who was transferred from [facility] as a trauma patient after he fell off of a ladder earlier today, he fell approximately 10 feet onto grass with immediate onset of severe low back pain. Initial CT scanning revealed an L1 fracture. He was transferred to [facility] emergency room for further evaluation. The patient has had no sensorimotor symptoms or deficits in the upper or lower extremities. 10/04: The patient states that he does have low back pain but otherwise is doing good. He denies any pain, numbness, tingling or weakness to the lower extremities. He does say he hasn't been out of bed yet. There is a TLSO brace in the room. 10/05: This morning the patient is awake and alert. Therapy is in the room and had just walked the patient to the Nurses' station. The patient states that he is doing good and his back pain is much better. He denies any pain, numbness or tingling to the lower extremities. He is in the TLSO brace in bed because he says it helps with the pain and in being able to move. The patient was transferred to a regular med/surg floor yesterday from [facility]. 10/06: When seen this afternoon the patient is doing well and is sitting up in a chair. He is in the TLSO brace. He does have some pain lateral of the lower spine on both sides. He has a walker in front of him for ambulation. System Review Comments MUSCULOSKELETAL: Back pain lateral of the spine on both sides. Exam Results 10/04/17 10/04/17 10/05/17 10/05/17 10/06/17 10/06/17 06:00 18:00 06:00 18:00 06:00 18:00 Intake Total 3298 ml 240 ml Output Total 2700 ml 1400 ml 2000 ml Balance 598 ml -1400 ml -1760 ml Intake Oral 700 ml 240 ml IV Total 2598 ml Output Urine Total 2700 ml 1400 ml 2000 ml # Voids 2 # Bowel Movements 0 0 Vital Signs Date Time Temp Pulse Resp B/P (MAP) Pulse Ox O2 Delivery O2 Flow Rate FiO2 10/06/17 12:22 98.2 76 18 134/76 (95) 96 10/06/17 08:41 98.7 79 18 132/73 (92) 95 10/06/17 04:52 98.8 71 16 125/69 (87) 94 10/06/17 00:00 98.7 83 16 113/68 (83) 96 10/05/17 21:05 99.5 76 18 138/80 (99) 95 10/05/17 17:01 98.9 81 18 159/97 (117) 97 10/05/17 14:35 18 10/05/17 12:39 97.9 77 20 162/90 (114) 97 10/05/17 09:46 18 10/05/17 08:08 98.2 72 20 147/87 (107) 95 10/05/17 04:00 99.4 70 18 129/65 (86) 94 10/04/17 22:55 98.7 73 139/83 (101) 96 10/04/17 21:00 73 10/04/17 20:00 98.3 68 18 140/79 (99) 96 10/04/17 19:00 71 10/04/17 15:00 98.2 78 18 134/82 (99) 97 10/04/17 13:00 70 10/04/17 10:00 65 10/04/17 08:00 98.1 77 20 144/88 (106) 96 10/04/17 08:00 67 10/04/17 07:00 97 10/04/17 06:00 65 10/04/17 04:00 98.7 64 15 122/65 (84) 95 10/04/17 04:00 64 10/04/17 02:00 66 10/04/17 00:00 98.0 77 14 125/67 (86) 96 10/04/17 00:00 70 10/03/17 22:00 71 10/03/17 21:10 80 10/03/17 20:00 98.3 80 22 138/70 (92) 96 10/03/17 17:02 98.3 80 16 151/84 (106) 96 Physical Examination GENERAL: Awake & alert sitting up in the chair, affect is normal, no apparent distress. MUSCULOSKELETAL: PATRICK w/o difficulty, no evident clubbing or deformity. In TLSO brace. Minimally TTP along the lower thoracolumbar spine, mildly TTP laterally along the paraspinal region bilaterally. NEUROLOGICAL: AAOx3. Speech clear & appropriate. Follows simple commands w/o difficulty. Sensation intact to the light touch to the lower extremities. Motor strength is 5/5 to all major flexion & extension muscle groups of the lower extremities. Lab, Micro, Other Results This practitioner reviewed the lumbar spine x-rays completed this morning and compared them with the CT lumbar spine from . There is a moderate compression fracture of L1 that appears stable in height. Recent Impressions Lumbar Spine X-Ray 10/05/17 0000 Signed Impressions: Service Date/Time: September 12:37 - CONCLUSION: 1. Moderate compression fracture of L1 with superior endplate compression. 2. Lower lumbar degenerative disc disease and facet arthropathy. Ranjeet Juan MD Laboratory Tests Test 10/03/17 20:48 10/04/17 04:44 10/05/17 04:47 Nasal Screen MRSA (PCR) MRSA NOT DETECTED White Blood Count 6.7 TH/MM3 6.8 TH/MM3 Red Blood Count 3.95 MIL/MM3 3.98 MIL/MM3 Hemoglobin 13.0 GM/DL 13.2 GM/DL Hematocrit 38.2 % 38.8 % Mean Corpuscular Volume 96.6 FL 97.5 FL Mean Corpuscular Hemoglobin 32.9 PG 33.3 PG Mean Corpuscular Hemoglobin Concent 34.1 % 34.1 % Red Cell Distribution Width 13.3 % 13.3 % Platelet Count 205 TH/MM3 209 TH/MM3 Mean Platelet Volume 9.1 FL 8.8 FL Neutrophils (%) (Auto) 70.1 % 68.1 % Lymphocytes (%) (Auto) 19.5 % 21.9 % Monocytes (%) (Auto) 9.5 % 8.4 % Eosinophils (%) (Auto) 0.6 % 1.1 % Basophils (%) (Auto) 0.3 % 0.5 % Neutrophils # (Auto) 4.7 TH/MM3 4.6 TH/MM3 Lymphocytes # (Auto) 1.3 TH/MM3 1.5 TH/MM3 Monocytes # (Auto) 0.6 TH/MM3 0.6 TH/MM3 Eosinophils # (Auto) 0.0 TH/MM3 0.1 TH/MM3 Basophils # (Auto) 0.0 TH/MM3 0.0 TH/MM3 CBC Comment DIFF FINAL DIFF FINAL Differential Comment Blood Urea Nitrogen 12 MG/DL 11 MG/DL Creatinine 0.67 MG/DL 0.76 MG/DL Random Glucose 111 MG/DL 112 MG/DL Calcium Level 8.1 MG/DL 8.0 MG/DL Sodium Level 139 MEQ/L 140 MEQ/L Potassium Level 3.7 MEQ/L 3.8 MEQ/L Chloride Level 106 MEQ/L 108 MEQ/L Carbon Dioxide Level 26.3 MEQ/L 25.9 MEQ/L Anion Gap 7 MEQ/L 6 MEQ/L Estimat Glomerular Filtration Rate 122 ML/MIN 105 ML/MIN Medical Decision Making Impression and Plan Impression: 1. Superior L1 burst fracture with approximately 30% loss of vertebral body height, just less than 50% canal compromise, minimal posterior column involvement with laminar fracture but no evidence of ligamentous injury or subluxation, and no focal neurologic deficit on examination. TLICS score = 2. Patient is doing well, pain controlled, neurologically intact. PT recommends inpatient rehab, and OT recommends further therapy, inpatient vs at home. Plan: Primary management per Trauma. Neuro checks. TLSO brace when OOB. Mobilise patient w/assistance. Pain medications as needed to control acute pain. PT eval & tx. Patient is able to be discharged for inpatient rehab from NSGY's perspective. Ariel Todd Oct 06, 2017 12:52
[2017-10-06] MEDS ORDERED: ENOX40P SQ (13:41)
--- NOTE | 2017-10-06 13:47 | HHI.DS ---
Discharge Summary Admission Date Oct 03, 2017 at 17:50 Discharge Date: Oct 06, 2017 Admitting Diagnosis trauma transfer, L1 compression fracture (1) Fall from ladder ICD Codes: W11.XXXA - Fall on and from ladder, initial encounter Diagnosis: Principal (2) Burst fracture of lumbar vertebra ICD Codes: S32.001A - Stable burst fracture of unspecified lumbar vertebra, initial encounter for closed fracture Brief History S/P Trauma: Fall CBC/BMP: 10/05/17 0447 10/05/17 0447 Significant Findings Laboratory Tests Test 10/03/17 20:48 10/04/17 04:44 10/05/17 04:47 Red Blood Count 3.95 MIL/MM3 (4.50-5.90) 3.98 MIL/MM3 (4.50-5.90) Hematocrit 38.2 % (39.0-51.0) 38.8 % (39.0-51.0) Neutrophils (%) (Auto) 70.1 % (16.0-70.0) Monocytes (%) (Auto) 9.5 % (0.0-8.0) 8.4 % (0.0-8.0) Random Glucose 111 MG/DL (74-106) 112 MG/DL (74-106) Calcium Level 8.1 MG/DL (8.5-10.1) 8.0 MG/DL (8.5-10.1) Chloride Level 108 MEQ/L (98-107) Imaging Last Impressions Lumbar Spine X-Ray 10/05/17 0000 Signed Impressions: Service Date/Time: September 12:37 - CONCLUSION: 1. Moderate compression fracture of L1 with superior endplate compression. 2. Lower lumbar degenerative disc disease and facet arthropathy. Ranjeet Juan MD Thoracic Spine CT 10/03/17 0000 Signed Impressions: Service Date/Time: Tuesday, October 03, 2017 18:44 - CONCLUSION: 1. No acute fracture is identified within the thoracic spine. Burst fracture L1. See lumbar spine CT report. Usman Campo MD Lumbar Spine CT 10/03/17 0000 Signed Impressions: Service Date/Time: Tuesday, October 03, 2017 18:39 - CONCLUSION: 1. Burst fracture of L1 with retropulsion compromising about 30%% of the AP canal diameter and mild to moderate depression of the superior endplate. No other lumbar spine fractures identified. Usman Campo MD Chest CT 10/03/17 0000 Signed Impressions: Service Date/Time: Tuesday, October 03, 2017 18:44 - CONCLUSION: 1. Negative for acute traumatic injury in the in the thorax. L1 burst fracture. See lumbar spine CT. Usman Campo MD PE at Discharge GENERAL: 57-year-old well-nourished, well developed male lying in bed with TLSO brace on. SKIN: Warm and dry. HEAD: Atraumatic. Normocephalic. CARDIOVASCULAR: Regular rate and rhythm. RESPIRATORY: No accessory muscle use. Lungs clear to auscultation. Breath sounds equal bilaterally. GASTROINTESTINAL: Abdomen soft, non-tender, nondistended. + BS. MUSCULOSKELETAL: Extremities without cyanosis, or edema. MAEW, + perfused NEUROLOGICAL: Awake and alert. Normal speech. Hospital Course [place]: Fell off a ladder at 10ft landing in the grass on his bilateral heels. No LOC. Trauma transfer from [place]. INJURIES: L1 burst fx L1 burst fx Neurosurgery consulted, follow-up as outpatient Nonoperative management TLSO brace Pain control OOB-PT and OT ordered Rehabilitation placement Lovenox Follow-up with PCP in 1 week Plan of care discussed with patient at bedside. Patient is clear from trauma surgery standpoint to safely discharge inpatient rehabilitation Pt Condition on Discharge: Stable Discharge Disposition: Rehab Inpatient Discharge Instructions DIET: Follow Instructions for: As Tolerated, No Restrictions Activities you can perform: Weight Bearing as [place] Activities to Avoid: Concussion Sports, Lifting/Bending, Strenuous Activity Other Activity Instructions: Wear TLSO brace when out of bed. No driving while taking narcotics. Kari HaleP Oct 06, 2017 13:47
[2017-10-08] MEDS ORDERED: REMOVE OLD DURAGESIC (FENTANYL) PATCH T-DERMAL SCH (08:00)
== END 2017-10-06 13:57 | DRG 552 ==
LOC: NEPE 16:48 → NEDA 17:50 → N03B 20:41 → N05B 10-04 22:33
PROVIDERS: ADMIT Surgery Trauma Surgery; ATTEND Surgery Trauma Surgery
DX: S32.011A Stable burst fracture of first lumbar vertebra, initial encounter for closed fracture (principal); I10 Essential (primary) hypertension; M48.061 Spinal stenosis, lumbar region without neurogenic claudication; W11.XXXA Fall on and from ladder, initial encounter
CPT/HCPCS: 71250; 72100; 72128; 72131; 80048; 85025; 87641; 94150; J0131; J1650; J2270; J2405; J7030; L0200; L0484